=== PATIENT | female | born 1960 | race Caucasian/White ===

== ENCOUNTER 2020-08-31 20:29 | Emergency (ER) | payer MEDICARE ==
[~2020-08-31] VITALS: Ht 160 cm; Wt 81.6 kg
[2020-08-31 21:17] LABS: BASO % 0.3 % (0.0-1.0); EOS # 0.3 10*3/uL (0.0-0.4); EOS % 1.8 % (1.0-4.0); LYMPH # 2.2 10*3/uL (1.3-4.4); LYMPH % 16.5 % (27.0-41.0); MEAN CELL VOLUME 89.6 fl (81.0-99.0); MEAN CORPUSCULAR HGB 28.5 pg (27.0-31.0); MEAN CORPUSCULAR HGB CONC 31.8 g/dl (33.0-37.0); MEAN PLATELET VOLUME 9.7 fl (9.6-12.3); MONO # 0.7 10*3/uL (0.1-1.0); MONO % 5.2 % (3.0-9.0); NEUT # 10.3 10*3/uL (2.3-7.9); NEUT % 75.8 % (47.0-73.0); PLATELET COUNT AUTOMATED 298 10*3/uL (130-400); RED BLOOD COUNT 4.91 10*6/uL (4.10-5.10); RED CELL DISTRI WIDTH 13.2 % (0-14.5); WHITE BLOOD COUNT 13.5 10*3/uL (4.8-10.8)
[2020-08-31 21:38] LABS: ACETAMINOPHEN (TYLENOL) < 5.0 ug/ml (10-30); ALKALINE PHOSPHATASE 103 U/L (45-117); BUN 17 mg/dl (7-24); CHLORIDE 108 mmol/L (98-107); CPK 44 U/L (26-192); CREATININE 1.43 mg/dL (0.55-1.02); ETHYL ALCOHOL < 3.0 mg/dl (<3); POTASSIUM 4.2 mmol/L (3.5-5.1); SGOT/AST 7 IU/L (3-35); SGPT/ALT 14 U/L (12-78); SODIUM 139 mmol/L (136-145); TOTAL PROTEIN 7.3 gm/dL (6.4-8.2)
[2020-08-31] MEDS ORDERED: FLUOXETINE HYDR20 M1 PO (21:40)
[2020-08-31] MEDS ORDERED: LEVOTHYROXINE75 MC1 PO (21:40)
[2020-08-31 21:41] LABS: BILIRUBIN Negative (Negative); BLOOD Negative (Negative); CLARITY Clear (Clear); COLOR Yellow (Yellow); GLUCOSE Negative (Negative); KETONE Negative (Negative); LEUKO ESTERASE 1+ (Negative); NITRITE Negative (Negative); PH 6.5 (4.5-8.0); SPECIFIC GRAVITY <= 1.005 (1.001-1.030); UROBILINOGEN 0.2 E.U./dl (0.0-1.0)
[2020-08-31] MEDS ORDERED: AMLODIPINE BESYL5 MG PO (21:41)
[2020-08-31] MEDS ORDERED: LITHIUM CARBON300 MG PO (21:41)
[2020-08-31] MEDS ORDERED: BENZTROPINE ME0.5 MG PO (21:41)
[2020-08-31] MEDS ORDERED: ASPIRIN ADULT L81 M1 PO (21:42)
[2020-08-31] MEDS ORDERED: TRIHEXYPHENIDYL5 MG PO (21:42)
[2020-08-31 21:48] LABS: BACTERIA 2+; URINE AMPHETAMINES < 1000 (1000ng/ml); URINE BARBITURATES < 200 (200ng/ml); URINE BENZODIAZEPINES < 200 (200ng/ml); URINE CANNABINOIDS (THC) < 50 (50ng/ml); URINE COCAINE < 300 (300ng/ml); URINE METHADONE < 300 (300ng/ml); URINE OPIATES < 300 (300ng/ml)
[2020-08-31 21:49] LABS: URINE PHENCYCLIDINE < 25 (25ng/ml)
[2020-09-01] MEDS ORDERED: CIPRO500 MG PO (00:50)
== END 2020-09-01 01:02 | disposition home or self-care (01) ==
LOC: ED 20:29
PROVIDERS: Internal Medicine
DX: N39.0 Urinary tract infection, site not specified (principal); N17.9 Acute kidney failure, unspecified; N18.9 Chronic kidney disease, unspecified; F31.9 Bipolar disorder, unspecified; F41.9 Anxiety disorder, unspecified; Z20.822 Contact with and (suspected) exposure to COVID-19; Z90.711 Acquired absence of uterus with remaining cervical stump; Z88.8 Allergy status to other drugs, medicaments and biological substances; Z79.899 Other long term (current) drug therapy; Z98.890 Other specified postprocedural states

== ENCOUNTER 2021-08-03 10:55 | Inpatient (IN) | payer MEDICARE ==
[~2021-08-03] VITALS: Ht 160 cm; Wt 74.3 kg
[~2021-08-03 10:55] MED LIST: AMLODIPINE BESYL5 MG PO; ASPIRIN ADULT L81 M1 PO; BENZTROPINE ME0.5 MG PO; CIPRO500 MG PO; FLUOXETINE HYDR20 M1 PO; LEVOTHYROXINE75 MC1 PO; LITHIUM CARBON300 MG PO; TRIHEXYPHENIDYL5 MG PO
[2021-08-03 11:01] VITALS: BP 192/68
[2021-08-03] MEDS ORDERED: ASPIRIN81 M1 PO (11:21)
[2021-08-03] MEDS ORDERED: COGENTIN0.5 MG PO (11:22)
[2021-08-03] MEDS ORDERED: PROZAC40 M1 PO (11:22)
[2021-08-03] MEDS ORDERED: SYNTHROID,LEVO75 MCG PO (11:22)
[2021-08-03] MEDS ORDERED: NORVASC5 MG PO (11:22)
[2021-08-03] MEDS ORDERED: Depakote500 MG PO (11:22)
[2021-08-03 11:23] LABS: BASO % 0.3 % (0.0-1.0); EOS # 0.2 10*3/uL (0.0-0.4); EOS % 2.3 % (1.0-4.0); HEMATOCRIT 47.3 % (37.0-47.0); LYMPH # 1.7 10*3/uL (1.3-4.4); LYMPH % 23.9 % (27.0-41.0); MEAN CELL VOLUME 90.6 fl (81.0-99.0); MEAN CORPUSCULAR HGB CONC 34.2 g/dl (33.0-37.0); MEAN PLATELET VOLUME 9.3 fl (9.6-12.3); MONO # 0.5 10*3/uL (0.1-1.0); MONO % 6.6 % (3.0-9.0); NEUT # 4.6 10*3/uL (2.3-7.9); NEUT % 66.2 % (47.0-73.0); PLATELET COUNT AUTOMATED 192 10*3/uL (130-400); RED BLOOD COUNT 5.22 10*6/uL (4.10-5.10); RED CELL DISTRI WIDTH 12.4 % (0-14.5)
[2021-08-03] MEDS ORDERED: MELATONIN10 M4 PO (11:23)
[2021-08-03 11:38] LABS: CREATININE 1.45 mg/dL (0.55-1.02); POTASSIUM 3.9 mmol/L (3.5-5.1); TOTAL PROTEIN 7.1 gm/dL (6.4-8.2); VALPROIC ACID (DEPAKENE) 129.3 ug/ml (50-100)
[2021-08-03 12:23] LABS: BILIRUBIN Negative (Negative); BLOOD Negative (Negative); CLARITY Clear (Clear); COLOR Yellow (Yellow); GLUCOSE Negative (Negative); KETONE Negative (Negative); LEUKO ESTERASE 1+ (Negative); NITRITE Negative (Negative); SPECIFIC GRAVITY <= 1.005 (1.001-1.030); UROBILINOGEN 0.2 E.U./dl (0.0-1.0)
[2021-08-03 12:39] LABS: EPITHELIAL CELLS 0-2; RBC 0-2 rbc/hpf (0-2)
[2021-08-03 14:00] VITALS: BP 154/106; BP 182/88
[2021-08-03 16:00] VITALS: BP 173/94
[2021-08-03 20:00] VITALS: BP 147/88
[2021-08-04] VITALS: BP 97/79
[2021-08-04 06:26] LABS: CREATININE 1.36 mg/dL (0.55-1.02); POTASSIUM 4.8 mmol/L (3.5-5.1)
[2021-08-04 07:19] LABS: BASO % 0.3 % (0.0-1.0); EOS # 0.1 10*3/uL (0.0-0.4); EOS % 2.2 % (1.0-4.0); HEMATOCRIT 42.9 % (37.0-47.0); LYMPH # 1.7 10*3/uL (1.3-4.4); LYMPH % 25.3 % (27.0-41.0); MEAN CELL VOLUME 93.1 fl (81.0-99.0); MEAN CORPUSCULAR HGB 30.8 pg (27.0-31.0); MEAN CORPUSCULAR HGB CONC 33.1 g/dl (33.0-37.0); MEAN PLATELET VOLUME 9.5 fl (9.6-12.3); MONO # 0.6 10*3/uL (0.1-1.0); MONO % 9.2 % (3.0-9.0); NEUT # 4.1 10*3/uL (2.3-7.9); NEUT % 62.5 % (47.0-73.0); PLATELET COUNT AUTOMATED 166 10*3/uL (130-400); RED BLOOD COUNT 4.61 10*6/uL (4.10-5.10); RED CELL DISTRI WIDTH 12.7 % (0-14.5); WHITE BLOOD COUNT 6.5 10*3/uL (4.8-10.8)
[2021-08-04 08:00] VITALS: BP 161/74
[2021-08-04 12:00] VITALS: BP 144/86; BP 93/52
[2021-08-04 16:00] VITALS: BP 115/60
[2021-08-04 20:00] VITALS: BP 137/63
[2021-08-05] VITALS: BP 134/69
[2021-08-05 04:59] LABS: CREATININE 1.22 mg/dL (0.55-1.02); POTASSIUM 4.5 mmol/L (3.5-5.1)
[2021-08-05 05:20] LABS: BASO % 0.3 % (0.0-1.0); EOS # 0.2 10*3/uL (0.0-0.4); LYMPH % 32.4 % (27.0-41.0); MEAN CELL VOLUME 90.7 fl (81.0-99.0); MEAN CORPUSCULAR HGB 30.8 pg (27.0-31.0); MEAN PLATELET VOLUME 9.7 fl (9.6-12.3); MONO # 0.5 10*3/uL (0.1-1.0); MONO % 8.3 % (3.0-9.0); NEUT # 3.5 10*3/uL (2.3-7.9); NEUT % 55.4 % (47.0-73.0); PLATELET COUNT AUTOMATED 173 10*3/uL (130-400); RED BLOOD COUNT 4.41 10*6/uL (4.10-5.10); RED CELL DISTRI WIDTH 12.5 % (0-14.5); WHITE BLOOD COUNT 6.3 10*3/uL (4.8-10.8)
[2021-08-05 08:00] VITALS: BP 108/84
[2021-08-05 10:29] LABS: VITAMIN D, 25-HYDROXY 13.9 ng/mL (30-100)
[2021-08-05 12:00] VITALS: BP 145/87
[2021-08-05 16:00] VITALS: BP 157/89
[2021-08-05 20:00] VITALS: BP 118/66
[2021-08-06] VITALS: BP 124/87
[2021-08-06 05:55] LABS: CREATININE 1.19 mg/dL (0.55-1.02); POTASSIUM 4.8 mmol/L (3.5-5.1)
[2021-08-06 06:16] LABS: BASO % 0.3 % (0.0-1.0); EOS # 0.2 10*3/uL (0.0-0.4); EOS % 3.9 % (1.0-4.0); HEMATOCRIT 40.6 % (37.0-47.0); LYMPH # 1.9 10*3/uL (1.3-4.4); MEAN CELL VOLUME 93.3 fl (81.0-99.0); MEAN CORPUSCULAR HGB 30.8 pg (27.0-31.0); MEAN PLATELET VOLUME 10.3 fl (9.6-12.3); MONO # 0.5 10*3/uL (0.1-1.0); MONO % 8.2 % (3.0-9.0); NEUT # 3.5 10*3/uL (2.3-7.9); PLATELET COUNT AUTOMATED 163 10*3/uL (130-400); RED BLOOD COUNT 4.35 10*6/uL (4.10-5.10); RED CELL DISTRI WIDTH 12.7 % (0-14.5); WHITE BLOOD COUNT 6.2 10*3/uL (4.8-10.8)
[2021-08-06 08:00] VITALS: BP 168/80
[2021-08-06 12:00] VITALS: BP 92/63
[2021-08-06 16:00] VITALS: BP 115/61
[2021-08-06 20:00] VITALS: BP 159/64
[2021-08-07] VITALS: BP 103/55
[2021-08-07 08:00] VITALS: BP 168/78
[2021-08-07 12:00] VITALS: BP 138/61
[2021-08-07 16:00] VITALS: BP 136/56
[2021-08-07 17:56] LABS: URINE AMPHETAMINES < 1000 (1000ng/ml); URINE BARBITURATES < 200 (200ng/ml); URINE BENZODIAZEPINES < 200 (200ng/ml); URINE CANNABINOIDS (THC) < 50 (50ng/ml); URINE COCAINE < 300 (300ng/ml); URINE METHADONE < 300 (300ng/ml); URINE OPIATES < 300 (300ng/ml)
[2021-08-07 18:02] LABS: URINE PHENCYCLIDINE < 25 (25ng/ml)
[2021-08-07 20:00] VITALS: BP 116/75
[2021-08-07 23:24] VITALS: BP 105/51
[2021-08-08] MEDS ORDERED: Vitamin D (50,000 UN PO (07:28)
[2021-08-08] MEDS ORDERED: VITAMIN E180 M1 PO (07:28)
[2021-08-08] MEDS ORDERED: QUETIAPINE FUM100 M3 PO (07:28)
[2021-08-08] MEDS ORDERED: VIBRAMYCIN100 MG PO (07:30)
[2021-08-08 08:18] VITALS: BP 145/58
== END 2021-08-08 08:46 | DRG 917 ==
LOC: ED 10:55 → 4E 12:37 → EDHOLD 12:37 → 4E 13:26
PROVIDERS: Internal Medicine; Nurse Practitioner Family; Registered Nurse; Student in an Organized Health Care Education/Training Program; ADMIT Internal Medicine; ATTEND Internal Medicine
DX: T42.6X1A Poisoning by other antiepileptic and sedative-hypnotic drugs, accidental (unintentional), initial encounter (principal); G93.41 Metabolic encephalopathy; N17.0 Acute kidney failure with tubular necrosis; N39.0 Urinary tract infection, site not specified; R45.851 Suicidal ideations; Z20.822 Contact with and (suspected) exposure to COVID-19; Y92.89 Other specified places as the place of occurrence of the external cause; D75.1 Secondary polycythemia; F31.9 Bipolar disorder, unspecified; I10 Essential (primary) hypertension; G47.00 Insomnia, unspecified; E03.9 Hypothyroidism, unspecified; Z88.6 Allergy status to analgesic agent; Z88.8 Allergy status to other drugs, medicaments and biological substances; Z90.710 Acquired absence of both cervix and uterus; Z82.49 Family history of ischemic heart disease and other diseases of the circulatory system; Z79.82 Long term (current) use of aspirin; Z79.899 Other long term (current) drug therapy

== ENCOUNTER 2022-01-30 11:01 | Emergency (ER) | payer MEDICARE ==
[~2022-01-30] VITALS: Wt 70.8 kg
[~2022-01-30 11:01] MED LIST changes: +ASPIRIN81 M1 PO; +COGENTIN0.5 MG PO; +Depakote500 MG PO; +MELATONIN10 M4 PO; +NORVASC5 MG PO; +PROZAC40 M1 PO; +QUETIAPINE FUM100 M3 PO; +SYNTHROID,LEVO75 MCG PO; +VIBRAMYCIN100 MG PO; +VITAMIN E180 M1 PO; +Vitamin D (50,000 UN PO
[2022-01-30 12:03] LABS: BASO % 0.4 % (0.0-1.0); EOS % 0.6 % (1.0-4.0); HEMATOCRIT 43.9 % (37.0-47.0); LYMPH # 1.2 10*3/uL (1.3-4.4); LYMPH % 16.7 % (27.0-41.0); MEAN CELL VOLUME 90.1 fl (81.0-99.0); MEAN CORPUSCULAR HGB 29.8 pg (27.0-31.0); MEAN PLATELET VOLUME 10.2 fl (9.6-12.3); MONO # 0.4 10*3/uL (0.1-1.0); MONO % 5.8 % (3.0-9.0); NEUT # 5.3 10*3/uL (2.3-7.9); NEUT % 76.2 % (47.0-73.0); PLATELET COUNT AUTOMATED 225 10*3/uL (130-400); RED BLOOD COUNT 4.87 10*6/uL (4.10-5.10); RED CELL DISTRI WIDTH 14.2 % (0-14.5)
[2022-01-30 12:15] LABS: ACT PARTIAL THROMBO TIME 25.4 SECONDS (20.0-32.1); INTERNATIONAL NORM RATIO 1.1 (2.0-3.5)
[2022-01-30 12:19] LABS: ALKALINE PHOSPHATASE 94 U/L (45-117); BUN 12 mg/dl (7-24); CHLORIDE 114 mmol/L (98-107); LIPASE 118 U/L (73-393); POTASSIUM 4.4 mmol/L (3.5-5.1); SGOT/AST 28 IU/L (3-35); SGPT/ALT 17 U/L (12-78); SODIUM 144 mmol/L (136-145); TOTAL PROTEIN 6.6 gm/dL (6.4-8.2)
[2022-01-30 12:20] LABS: ACETAMINOPHEN (TYLENOL) < 5.0 ug/ml (10-30); ETHYL ALCOHOL < 3.0 mg/dl (<3)
[2022-01-30 13:07] LABS: LITHIUM < 0.20 MMOL/L (0.60-1.20); SALICYLATE (ASA) < 1.7 mg/dl (2.8-20.0)
[2022-01-30 14:50] LABS: BILIRUBIN Negative (Negative); BLOOD Negative (Negative); CLARITY Clear (Clear); COLOR Yellow (Yellow); GLUCOSE Negative (Negative); KETONE Negative (Negative); LEUKO ESTERASE Negative (Negative); NITRITE Negative (Negative); SPECIFIC GRAVITY <= 1.005 (1.001-1.030); UROBILINOGEN 0.2 E.U./dl (0.0-1.0)
[2022-01-30 14:58] LABS: BACTERIA 1+
[2022-01-30 14:59] LABS: URINE AMPHETAMINES < 1000 (1000ng/ml); URINE BARBITURATES < 200 (200ng/ml); URINE BENZODIAZEPINES < 200 (200ng/ml); URINE CANNABINOIDS (THC) < 50 (50ng/ml); URINE COCAINE < 300 (300ng/ml); URINE METHADONE < 300 (300ng/ml); URINE OPIATES < 300 (300ng/ml)
[2022-01-30 15:00] LABS: URINE PHENCYCLIDINE < 25 (25ng/ml)
[2022-01-30] MEDS ORDERED: ABILIFY20 MG PO (19:58)
[2022-01-30] MEDS ORDERED: ARICEPT10 M1 PO (19:59)
[2022-01-30] MEDS ORDERED: BUPROPION HCL150 M3 PO (20:00)
[2022-01-30] MEDS ORDERED: LOPRESSOR50 M1 PO (20:00)
[2022-01-30] MEDS ORDERED: NAMENDA10 MG PO (20:00)
[2022-01-30] MEDS ORDERED: TRAZODONE100 MG PO (20:01)
== END 2022-01-31 10:20 ==
LOC: ED 11:01
PROVIDERS: Emergency Medicine
DX: F32.9 Major depressive disorder, single episode, unspecified (principal); Z20.822 Contact with and (suspected) exposure to COVID-19; Z88.8 Allergy status to other drugs, medicaments and biological substances; Z79.899 Other long term (current) drug therapy